=== PATIENT | female | born 1940 | race Caucasian/White ===

== ENCOUNTER → 2018-12-14 14:41 | Outpatient (CLI) | payer MEDICARE, SELFPAY ==
[2018-12-14 16:27] LABS: Prothrombin Time (Protime)PT. 42.9 SECONDS (11.7-14.9)
[2018-12-14 17:31] LABS: International Normalized Ratio 4.5
== END ==
DX: Z79.01 Long term (current) use of anticoagulants (principal); Z96.642 Presence of left artificial hip joint
CPT/HCPCS: 36415; 85610

== ENCOUNTER → 2018-12-18 10:47 | Outpatient (CLI) | payer MEDICARE, SELFPAY ==
[2018-12-18 11:42] LABS: International Normalized Ratio 3.1; Prothrombin Time (Protime)PT. 32.5 SECONDS (11.7-14.9)
== END ==
DX: Z79.01 Long term (current) use of anticoagulants (principal); Z96.649 Presence of unspecified artificial hip joint
CPT/HCPCS: 36415; 85610